=== PATIENT | female | born 1935 | race Caucasian/White ===

== ENCOUNTER → 2016-09-17 | Outpatient (CLI) | payer BC, MEDICARE ==
[2006-02-11 09:20] VITALS: TEMP 96.8
== END ==
LOC: MC.RAD 09:54
DX: Z12.31 Encounter for screening mammogram for malignant neoplasm of breast (principal); E78.5 Hyperlipidemia, unspecified

== ENCOUNTER → 2018-08-31 | Outpatient (CLI) | payer MEDICARE, BC ==
[2006-02-11 09:20] VITALS: TEMP 96.8
== END ==
LOC: MC.RAD 10:00
DX: Z12.31 Encounter for screening mammogram for malignant neoplasm of breast (principal); R92.0 Mammographic microcalcification found on diagnostic imaging of breast

== ENCOUNTER → 2018-09-04 | Outpatient (CLI) | payer MEDICARE, BC ==
[2006-02-11 09:20] VITALS: TEMP 96.8
== END ==
LOC: MC.RAD 08:29
DX: R92.0 Mammographic microcalcification found on diagnostic imaging of breast (principal)

== ENCOUNTER → 2019-03-15 | Outpatient (CLI) | payer MEDICARE, BC ==
[2006-02-11 09:20] VITALS: TEMP 96.8
== END ==
LOC: MC.RAD 07:30
DX: Z09 Encounter for follow-up examination after completed treatment for conditions other than malignant neoplasm (principal); R92.0 Mammographic microcalcification found on diagnostic imaging of breast

== ENCOUNTER → 2019-09-27 | Outpatient (CLI) | payer MEDICARE, BC ==
[2006-02-11 09:20] VITALS: TEMP 96.8
== END ==
LOC: MC.RAD 11:45
DX: Z12.31 Encounter for screening mammogram for malignant neoplasm of breast (principal)

== ENCOUNTER → 2021-03-27 | Outpatient (CLI) | payer MEDICARE, BC ==
[2006-02-11 09:20] VITALS: TEMP 96.8
[~2021-03-27] MED LIST: FERROUS SU325 MG/TAB PO; FOLIC ACID 40400 MCG PO; NORCO 325 MG-51 TAB PO; ROXICODONE 55 MG/TAB PO; VITAMINC500CH PO; XARELTO10 MG PO
== END ==
LOC: MC.RAD 08:22
DX: Z12.31 Encounter for screening mammogram for malignant neoplasm of breast (principal); N64.89 Other specified disorders of breast

== ENCOUNTER → 2021-04-02 | Outpatient (CLI) | payer MEDICARE, BC ==
[2006-02-11 09:20] VITALS: TEMP 96.8
== END ==
LOC: MC.RAD 10:57
DX: Z12.31 Encounter for screening mammogram for malignant neoplasm of breast (principal); N64.89 Other specified disorders of breast

== ENCOUNTER 2021-04-26 09:54 | Emergency (ER) | payer MEDICARE, BC ==
[~2021-04-26] VITALS: Ht 167.6 cm; Wt 98.2 kg
[2021-04-26 09:56] VITALS: TEMP 98.3
[2021-04-26 13:25] VITALS: BP 140/91; PULSE 65
--- NOTE | 2021-04-26 15:54 | NUR ---
back shoe worker met with patient and her daughter to discharge plan home from the emergency room. Patient states she has a walker and will plan to obtain a commode. Patient and daughter are worried about being able to get into her home. Worker arranged for [facility] ambulance to meet patient at her home and provide assist in the house. Worker provided the Medicare.gov share report on home health agencies and patient chose [facility]. Worker contacted Dr Chavarria, primary care provider and secured that he will write home health orders. Worker contacted Beti with [facility] and gave the referral to include faxed clinical information. Beti states that she will contact Dr Chavarria's office office to obtain home health orders for skilled physical therapy. Patient and daughter verbalized understanding and agreement with the discharge plan. Worker met with emergency room provider and nurse and advised of the above information.
== END 2021-04-26 13:30 | disposition home or self-care (01) ==
LOC: COL.ER 09:54
DX: M66.0 Rupture of popliteal cyst (principal)

== ENCOUNTER 2021-05-03 11:13 | Inpatient (IN) | payer MEDICARE, BC ==
[~2021-05-03] VITALS: Ht 167.6 cm; Wt 99.8 kg
[2021-06-19] VITALS (11 sets, daily range): BP systolic 103–140; BP diastolic 59–86; PULSE 50–80; TEMP 97–98.5
[2021-06-19] MEDS ORDERED: FERROUS SU325 MG/TAB PO (06:12)
[2021-06-19] MEDS ORDERED: VITAMINC500CH PO (06:13)
[2021-06-19] MEDS ORDERED: FOLIC ACID 40400 MCG PO (06:13)
--- NOTE | 2021-06-19 11:54 | NUR ---
Patient arrived to room 331 at approximately 1050. Alert and oriented x 3. Daughter at bedside. Patient Denies pain at this time. Post op VSS and post op fluids infusing per orders. Acewrap to RLE with ice in place. Patient unable to feel anything below her waist at this moment, due to spinal. Pedal pulses intact. Denies needs at this time.
--- NOTE | 2021-06-19 11:58 | NUR ---
Marion catheter discontinued per orders, pericare provided. Patient given ativan for anxiety at this time. No further needs at this time.
--- NOTE | 2021-06-19 18:34 | NUR ---
Patient doing well post op. Ice maintained to Right knee. Patient up to BSC with x2 assist. Patient tolerating diet without difficulties. Patient denies additional needs at this time. Daughter remains at bedside. Patient educated on pain medications and PRN medications. Will report off to occupational therapy manager.
--- NOTE | 2021-06-19 19:56 | NUR ---
Patient assessed at this time. Alert and oriented x 4, and able to make needs known. Reports level 5 pain to right knee at this time. Given scheduled APAP per orders. Does not want stronger PRN pain medication at this time, but encouraged to call when she needs it, and voiced understanding. Repositioned in bed as requested. Patient has peripheral INT to right hand. Tolerating PO fluids well, no IV fluids running at this time. LS CTA. Respirations even and unlabored. HRR. Capillary refill less than 3 seconds. Non-tenting skin turgor. BSAx4. Passing gas, but no BM since surgery. Dressing to RLE CDI. Ice to area. SCDs on. Patient given drinks as requested, and voices no further questions, needs, or concerns at this time. Resting in bed with call light within reach.
--- NOTE | 2021-06-19 23:41 | NUR ---
Patient received PRN Roxicodone for pain as requested around 2039. Effective for a while, but had increased pain around 2204. Given PRN Silva for pain at that time as requested. Patient resting in bed with eyes closed at this time. Call light within reach.
[2021-06-20] VITALS (7 sets, daily range): BP systolic 119–161; BP diastolic 52–61; PULSE 68–97; TEMP 97.6–98.5
--- NOTE | 2021-06-20 00:46 | NUR ---
After patient was woken up for VS, she complained of leve 5 pain to right knee. Requested PRN Oxycodone. Given as requested at that time.
--- NOTE | 2021-06-20 05:47 | NUR ---
Patient was last given PRN pain medication around 0030. At that time, this nurse asked patient if she wanted to be woken up for her 0300 scheduled APAP. Patient stated that she did not sleep well the night before, and did not want to be woken up for APAP. Encouraged to call if she woke up at all and was needing any pain medication, and voiced understanding. Patient has not requested any further pain medication since 29. Patient is resting in bed with eyes closed at this time. Call light within reach. Patient has been assisted to bedside commode this shift using two assist with use of gait belt and walker. Patient has voiced no further questions, needs, or concerns at this time.
--- NOTE | 2021-06-20 07:45 | NUR ---
Assesment completed. Has INT to Rt hand intact, no redness,or swelling.Acewrap dressing to Rt knee CDT. Ice placed on Rt knee.Patient c/o Rt knee pain of 5/10, Pain medication given primary nurse.
--- NOTE | 2021-06-20 11:17 | NUR ---
SW met with the patient to discuss discharge plan. The patient lives alone in [place]. She reports independence with ADLs and has several canes, a FWW, and transport chair. The patient's PCP is Dr. Dedra Rao and she receives her medications from [facility]. She reports no difficulties obtaining her meds. The patient's DPOA-HC is in EMR. It designates her late . The alternate is her daughter, Hiral (ph#[phone]). The patient reports that Hiral has been visiting her and plans to stay with her for a month. Her other daughter, Shelley, will also be coming from [place] to stay with her for a while. The patient had a RTK. The patient reports that she would probably prefer to do home health from [facility], but then might be interested in SNF at [facility], if needed. Janel, with PT, then notified MABEL that the patient would benefit from SNF. MABEL discussed this with the patient. The patient was unsure and asked that SW discuss the options with her daughter, Hiral. MABEL contacted Hiral and reviewed the above. Hiral would like for the patient to pursue with SNF at [facility] and believes she would benefit from a stay there too. MABEL updated the patient. The patient is in agreenment to SNF and states that she would prefer [facility]. MABEL updated the patient's RN. MABEL contacted and faxed a referral to Arlyn at [facility]. Awaiting screen.
--- NOTE | 2021-06-20 13:41 | NUR ---
Arlyn, at [facility], reports that they are able to accept the patient for a skilled stay. They will just require a new COVID test. SW updated the patient's RN. SW to update the patient and her daughter.
--- NOTE | 2021-06-20 19:45 | NUR ---
Pt. sitting up with daughter at bedside. Pt. is A&OX3, assessment complete. Dressing to rt. knee CDI. Pt. reports pain to rt. knee at a 4 on pain scale, giving Tylenol. Pt. denies further needs, call light within reach.
[2021-06-21 03:33] VITALS: BP 150/66; PULSE 89; TEMP 98.5
[2021-06-21 07:16] VITALS: BP 127/49; PULSE 85; TEMP 98.3
--- NOTE | 2021-06-21 08:43 | NUR ---
Pt pleasant this AM. This student obtained VS and completed assessment. Then assisted pt with gait belt, traction on feet and walker to the bathroom. Pt voided with no complaints of discomfort. Urine pale yellow with no foul odor. COVID swab completed and taken to lab.
--- NOTE | 2021-06-21 09:10 | NUR ---
Student nurse applied AQUACEL dressing to R knee incision before pt showers with therapy. 45 stables noted to R knee inscision. Icision is approximately 21 cm long. Knee is swollen. Pt is ambulating well with therapy and assistance.
--- NOTE | 2021-06-21 11:00 | NUR ---
The patient is to tentatively discharge tomorrow. MABEL notified and faxed updates to Arlyn at [facility]. MABEL met with the patient and updated her on [facility]'s acceptance. MABEL contacted and updated the patient's daughter, Hiral. They are both in agreement to the plan. *Discharge plan: [facility]*
--- NOTE | 2021-06-21 11:42 | NUR ---
PT UP TO BR WITH ASSIST. EATING AND DRINKING WITH NO N/V REPORTED. MARY SYSTEM PLACED PER DR. IRBY. EDUCATED PT ON SYSTEM.
[2021-06-21 12:31] VITALS: BP 150/60; PULSE 88; TEMP 98.3
--- NOTE | 2021-06-21 13:13 | NUR ---
First visit from the clothes shaker. No needs right now.
--- NOTE | 2021-06-21 14:05 | NUR ---
PT UP TO BR AFTER THERAPY. VOIDED AND RETURNED TO BED WITH SET UP ASSIST. PT DOING WELL AT THIS TIME. DRESSING TO RIGHT KNEE CDI WITH MARY INPLACE.
[2021-06-21 15:22] VITALS: BP 152/61; PULSE 85; TEMP 98.4
[2021-06-21 19:41] VITALS: BP 132/59; PULSE 82; TEMP 99.1
[2021-06-22 00:01] VITALS: BP 158/65; PULSE 89; TEMP 98.5
--- NOTE | 2021-06-22 00:23 | NUR ---
PT RESTING IN BED QUIETLY @ THIS TIME. SCDS ON BILATERAL LOWER LEGS. PT HAD EARLIER AMBULATED A SHORT DISTANCE WITH GLASS MAKER IN HALLWAY.
--- NOTE | 2021-06-22 01:55 | NUR ---
PT AMBULATES TO BR WITH ARTIFICIAL FLOWER MAKER, REQUESTS PAIN MEDICATION. SCHEDULED TYLENOL ADMINISTERED. PT STATES THAT SHE HAS OTHERWISE SLEPT WELL. SCDs IN PLACE TO BILATERAL LEGS. DENIES OTHER NEEDS. CALL LIGHT WITHIN REACH.
[2021-06-22 04:00] VITALS: BP 129/64; PULSE 82; TEMP 99.2
--- NOTE | 2021-06-22 05:34 | NUR ---
PT ASSISTED TO BR FROM BED. SCDS REMOVED. MODERATE ASSISTANCE OF 1 TO GET PT TO SIDE OF BED. SBA, GAITBELT ET WALKER USED TO AMBULATE. PT URINATES, ASSISTED BACK INTO BED. HOB IS ELEVATED, FRESH ICE PLACED TO RIGHT KNEE, DRESSING IS CDI. PT STATES THAT SHE HAS NOT HAD BM SINCE SHE HAS BEEN IN THE HOSPITAL, WOULD LIKE TO AVOID LAXATIVES @ THIS TIME. PT EDUCATED ON WAYS TO PREVENT CONSTIPATION. GIVEN 2 HOT GLASSES OF TEA TO DRINK. PT AGREEABLE TO TRYING PRUNE JUICE LATER IN MORNING IF SHE HAS NO RESULTS. DENIES OTHER NEEDS. CALL LIGHT WITHIN REACH.
[2021-06-22 07:00] VITALS: BP 134/65; PULSE 87; TEMP 98.5
[2021-06-22] MEDS ORDERED: NORCO 325 MG-51 TAB PO (07:13)
[2021-06-22] MEDS ORDERED: XARELTO10 MG PO (07:13)
[2021-06-22] MEDS ORDERED: ROXICODONE 55 MG/TAB PO (07:14)
--- NOTE | 2021-06-22 08:17 | NUR ---
Pt napping in bed at this time- did not wake for inspirometere use
--- NOTE | 2021-06-22 09:34 | NUR ---
Pt participated with therapy walking in hallway. Pt now resting in recliner with call light and other items in reach on table. Pt states she is feeling well and she is going to take a nap.
--- NOTE | 2021-06-22 09:53 | NUR ---
Pt in recliner encouraged to cough and deep breathe before napping. Pt did not use insentive spirometer
--- NOTE | 2021-06-22 10:09 | NUR ---
Pt called stated she was uncomfortable in recliner- this student assisted patient back to bed. call light and bedside table with belongings placed within reach.
--- NOTE | 2021-06-22 11:36 | NUR ---
The patient is to discharge today, 06/22, to [facility] for a skilled stay. Transportation was scheduled at 1330, via [facility]. MABEL informed the patient, her RN, and the patient's daughter (Hiral) of the time. They were all agreeable to the time. MABEL also presented and read the IM form outloud to the patient. The patient verbalized understanding and signed the form. MABEL provided her with a copy. No additional needs at this time.
[2021-06-22 12:18] VITALS: BP 136/67; PULSE 86; TEMP 97.7
--- NOTE | 2021-06-22 13:46 | NUR ---
Pt assisted by student to wheelchair for discharge to care facility. Pt and her daughter gathered all their belongings and exited with care facility transportation.
--- NOTE | 2021-06-22 13:46 | NUR ---
REPORT CALLED TO [facility]. [facility]
== END 2021-06-22 13:48 | DRG 470 ==
LOC: SURG 06-19 05:40 → INPTSU 06-19 05:40 → SURG 06-19 07:30 → SDCO 06-19 07:30 → EDSTATUS 06-19 07:30 → SURG 06-19 10:51
PROVIDERS: ADMIT Orthopaedic Surgery
PROC: 0SRC0JZ Replacement of Right Knee Joint with Synthetic Substitute, Open Approach (ICD-10-PCS; principal; 2021-06-19 07:30)
DX: M17.11 Unilateral primary osteoarthritis, right knee (principal); Z20.822 Contact with and (suspected) exposure to COVID-19
CPT/HCPCS: A9284; C1713; C1776; J0690; J1885; J2250; J2405; J2704; J2795; J3010; J7120

== ENCOUNTER 2022-04-02 14:51 | Inpatient (IN) | payer MEDICARE, BC ==
[~2022-04-02] VITALS: Ht 167.6 cm; Wt 105.7 kg
[2022-05-29] VITALS (11 sets, daily range): BP systolic 124–162; BP diastolic 56–96; PULSE 56–89; TEMP 97.6–98.1
[2022-05-29] MEDS ORDERED: D3-5050000 IU PO (06:14)
--- NOTE | 2022-05-29 11:05 | NUR ---
PT TO ROOM 332 PER BED WITH REPORT FROM RAMON PAPER TUBE MACHINE OPERATOR. VSS, DRESSING TO LEFT KNEE CDI WITH OCCLUSIVE TEJAL WRAP OVER INCISION. PT IS A/O X3, VSS, ASSESSMENTS COMPLETE. PT ABLE TO MOVE FEET AND TOES. NO PAIN AT THIS TIME. PT'S DAUGHTER HAY, AT BEDSIDE AND CONCERNED WITH PAIN CONTROL. REQUESTING SCHEDULED PAIN MEDS AROUND THE CLOCK. PROVIDED EDUCATION ON HOW PAIN MEDICATIONS ARE ORDERED AND GIVEN, RAMON PAPER TUBE MACHINE OPERATOR UPDATED DR. BETHEA OF DAUGHTERS CONCERNS AND REQUESTS.
--- NOTE | 2022-05-29 17:28 | NUR ---
PT UP TO BSC VOIDED 200 MLS CONCENTRATED URINE. RETURNED TO BED.
--- NOTE | 2022-05-29 20:30 | NUR ---
Patient alert and oriented x4, daughter at bedside, was able to get up to the bedside commode, refused to walk down the hallway at this time, with INT to left wrist, dressing cleam, dry and intact, SCD's on, fall precautions in place, call light and personal items within reach.
[2022-05-30] VITALS (7 sets, daily range): BP systolic 137–158; BP diastolic 59–75; PULSE 74–86; TEMP 97.6–98.3
--- NOTE | 2022-05-30 06:30 | NUR ---
.Patient slept well over night, got up to the bedside commode twice for the assistant shift supervisor, iv antibiotics given,
[2022-05-30 07:23] LABS: HEMATOCRIT 37.6 % (37.0-47.0); HEMOGLOBIN 12.6 g/dl (12.5-16.0)
--- NOTE | 2022-05-30 10:16 | NUR ---
Initial visit; Patient thanked Verification Lead for looking in on her anf offering prayer and God's blessings. Verification Lead will keep Gentry in her prayers. Her daughter is here from [place] to take care of her for a couple of weeks. Verification Lead wished her well.
--- NOTE | 2022-05-30 15:45 | NUR ---
hospital food service worker met with patient to complete intake and discuss discharge plan. Patient reports that she lives at home alone in [place], however her daughter Hiral ([phone]) is here for the next two weeks from [place]. Prior to surgery, patient reports to being fully independent with her ADL's and only utilized a cane to assist with ambulation when she left the home. She has no home oxygen needs. PCP is and she utilizes [facility] for prescriptions. Patient states that she does have a DPOA-HC established listing her daughter Hiral. SW spoke with patient about the need for skilled rehab. Patient is in agreement with this plan. She states after her last knee surgery she went to [facility] and it helped her out a lot. Patient is open to me sending referrals off with [facility] as her first choice, [facility] as her Second and [facility] third. Clinical referrals faxed. Discharge plan: SNF- Referrals pending.
--- NOTE | 2022-05-30 20:15 | NUR ---
Patient alert and oriented x 4, INT to left wrist, daughter at bedside, aquacell dressing to left knee clean dry and intact, transfers x1 assist with walker, SCD's on, will continue to monitor.
[2022-05-31 03:45] VITALS: BP 158/68; PULSE 84; TEMP 98.2
--- NOTE | 2022-05-31 06:34 | NUR ---
Patient slept overnight, denies the need for prn pain medicine, got up to the bedside commode twice.
[2022-05-31 08:00] VITALS: BP 162/71; PULSE 85; TEMP 98.4
[2022-05-31 12:15] VITALS: BP 140/62; PULSE 86; TEMP 98.4
[2022-05-31] MEDS ORDERED: ASPI325T6 PO (13:40)
[2022-05-31] MEDS ORDERED: SENOKOT S 50 MG1 TAB PO (13:41)
[2022-05-31] MEDS ORDERED: ROXICODONE 55 MG/TAB PO (13:41)
--- NOTE | 2022-05-31 16:07 | NUR ---
c iron worker updated the patient that [facility] is able to accept for SNF admit on Sat. 06/01. Patient is agreeable to this plan. Covid swab requested from patient's RN. Informed patient's RN that [facility] would like the physician to send her prescriptions to [facility] today due to the pharmacy being closed over the weekend. RN agrees to reach out to MD. Patient presented with MCR.IM form. Education provided and patient verbalizes her agreement with plan. Signed original placed in the patients chart and copy provided back to the patient. Discharge plan: [facility]-06/01
[2022-05-31 16:34] VITALS: BP 135/62; PULSE 85; TEMP 97.8
[2022-05-31 19:55] VITALS: BP 137/53; PULSE 83; TEMP 98.1
--- NOTE | 2022-05-31 20:00 | NUR ---
Patient alert and oriented, daughter at bedside, denies pain at this time, hs meds given, no further needs or concerns at this time, will continue to monitor.
[2022-05-31 23:45] VITALS: BP 139/65; PULSE 82; TEMP 98.1
[2022-06-01 04:03] VITALS: BP 162/69; PULSE 81; TEMP 97.4
[2022-06-01 07:31] VITALS: BP 156/71; PULSE 82; TEMP 97.7
--- NOTE | 2022-06-01 09:01 | NUR ---
PT SITTING UP IN BED. SHIFT ASSESSMENT PERFORMED. SCDS AND MARKEL HOSE IN PLACE. NO COMPLAINTS OF PAIN. CALL LIGHT WITHIN REACH BED IN LOWEST POSITION.
--- NOTE | 2022-06-01 09:41 | NUR ---
MABEL setup for DC 06/01 @ 10am. MABEL fax DC orders to [facility]. MABEL and LIZ mohr had to fax script to [facility] as no confirmation from previous RN that it was sent on 05/31. LEONARDO FAXED # to .
--- NOTE | 2022-06-01 10:08 | NUR ---
REPORT CALLED TO RN AT [facility].
--- NOTE | 2022-06-01 10:09 | NUR ---
FAXED SCRIPTS TO [facility] PER ELEMENTARY ELL TEACHER REQUEST.
--- NOTE | 2022-06-01 10:14 | NUR ---
AGREE WITH DIANA'S DATA BASE DESIGN ANALYST ASSESSMENTS THIS SHIFT.
--- NOTE | 2022-06-01 10:48 | NUR ---
PT LEFT UNIT PER WHEEL CHAIR WITH TRANSPORTATION FROM [facility].
--- NOTE | 2022-06-01 10:58 | NUR ---
CONTACTED DR. SALGADO TO COSIGN DISCHARGE ORDERSFOR [facility].
== END 2022-06-01 10:45 | DRG 470 ==
LOC: INPTSU 05-29 05:37 → SURG 05-29 07:30 → EDSTATUS 05-29 07:30 → SDCO 05-29 07:30 → SURG 05-29 10:30
PROVIDERS: ADMIT Orthopaedic Surgery
PROC: 0SRD0J9 Replacement of Left Knee Joint with Synthetic Substitute, Cemented, Open Approach (ICD-10-PCS; principal; 2022-05-29 07:30)
DX: M17.12 Unilateral primary osteoarthritis, left knee (principal); M25.462 Effusion, left knee; G62.9 Polyneuropathy, unspecified; I10 Essential (primary) hypertension; E78.5 Hyperlipidemia, unspecified; Z20.822 Contact with and (suspected) exposure to COVID-19
CPT/HCPCS: A9284; C1713; C1776; J0690; J1200; J2250; J2704; J7120

== ENCOUNTER → 2024-08-10 | Outpatient (CLI) | payer MEDICARE, BC ==
[2006-02-11 09:20] VITALS: BP 137/66; PULSE 73; TEMP 96.8
[~2024-08-10] MED LIST changes: +ASPI325T6 PO; +D3-5050000 IU PO; +SENOKOT S 50 MG1 TAB PO
== END ==
LOC: MC.RAD 12:50
DX: Z12.31 Encounter for screening mammogram for malignant neoplasm of breast (principal)